=== PATIENT | female | born 2000 | race Caucasian/White ===

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

== ENCOUNTER 2021-02-11 18:40 | Inpatient (IN) | payer MEDICAID, SELFPAY ==
[2021-02-11] VITALS (42 sets, daily range): BP systolic 97–141; BP diastolic 52–84; PULSE 60–86; TEMP 36.1–36.8; O2SAT 93–100; BMI 30.9
[2021-02-11] MEDS: Lactated Ringers 1,000 ML 200 ML IV (18:55)
[2021-02-11] MEDS: Lactated Ringers 500 ML 999 ML IV ×2 (19:00→20:48)
[2021-02-11 19:21] LABS: Absolute Lymphocyte Count 1.61 X10^3/uL (0.83-4.51); Absolute Neutrophil Count 10.5 X10^3/uL (2.0-7.7); Basophil# 0.02 X10^3/uL; Basophil% 0.2 % (0-1); Eosinophil# 0.03 X10^3/uL; Eosinophils% 0.2 % (0-5); Hematocrit 36.8 % (37-47); Hemoglobin 12.4 g/dL (12.0-15.0); Lymphocyte # 1.61 X10^3/ul (0.83-4.51); Lymphocyte % 12.4 % (19-41); Mean Corp Hgb Conc 33.7 g/dL (32-36); Mean Corpuscular Hgb 30.5 pg (27.0-32.0); Mean Corpuscular Volume 90.6 fL (81-99); Mean Platelet Vol. 11.7 fl (6.2-12.0); Monocyte# 0.79 X10^3/uL; Monocyte% 6.1 % (0-10); NRBC Flagged by Analyzer 0 % (0-5); Neutrophil # 10.45 X10^3/uL (2.7-7.7); Neutrophil % 80.7 % (47-70); Platelet Count 176 K/mm3 (150-450); RBC Distribution Width CV 12.5 % (11.6-14.6); RBC Distribution Width SD 41.3 fl (35.1-43.9); Red Blood Count 4.06 M/mm3 (4.2-5.4)
[2021-02-11] MEDS: fentaNYL-bupivacaine (epidural) 100 ML BAG EPIDURAL (20:09)
--- NOTE | 2021-02-11 20:41 | HP.PCM.OB_ITS ---
HPI - General General Date of Admission: 02/11/21 HPI Narrative BEATRIZ STEPHENS, is a 20 F who presents with ctxs. Maternal Data Information Final MERON: 02/21/21 Gestational age: 38&4 PFSH [facility] Medical History (Updated 02/11/21 @ 20:[address] Chuck Hernandes MD) Active labor at term Home Medications famotidine [Pepcid] 20 mg PO BID 02/11/21 [History Last Taken 02/11/21 10:00] prenat.vits,autumn,[id number] [ Vitamin] 1 tab PO DAILY 02/11/21 [History Last Taken 02/11/21 10:00] Allergy/AdvReac Type Severity Reaction Status Date / Time No Known Allergies Allergy Verified 02/11/21 19:16 Social History Smoking Status: Never smoker History Elective abortions Hx Para 0 Spontaneous abortions Hx # Term Pregnancies Ectopic pregnancies Hx # Pregnancies Multiple births # of living children NST FHR Rate Baby A Baseline: 125 Variability:: Moderate Accelerations:: 15 x 15 Decelerations:: Variable Uterine Activity:: Not tracing well Vital Signs Vital Signs Vital Signs: 02/11/21 18:37 02/11/21 19:05 02/11/21 19:06 Temperature 96.9 F L 98.2 F Temperature Source Temporal Pulse Rate 76 68 Blood Pressure 131/84 H BP Systolic 131 BP Diastolic 84 Pulse Ox 100 02/11/21 19:11 02/11/21 19:16 02/11/21 19:22 Temperature Temperature Source Pulse Rate 70 68 71 Blood Pressure BP Systolic BP Diastolic Pulse Ox 100 99 93 02/11/21 19:26 02/11/21 19:54 02/11/21 19:56 Temperature Temperature Source Pulse Rate 72 75 68 Blood Pressure 141/73 H BP Systolic 141 BP Diastolic 73 Pulse Ox 100 98 02/11/21 19:59 02/11/21 20:01 02/11/21 20:04 Temperature Temperature Source Pulse Rate 67 68 77 Blood Pressure 124/74 H BP Systolic 124 BP Diastolic 74 Pulse Ox 99 99 02/11/21 20:08 02/11/21 20:09 02/11/21 20:12 Temperature Temperature Source Pulse Rate 75 72 72 Blood Pressure 134/58 H 117/57 L BP Systolic 134 117 BP Diastolic 58 57 Pulse Ox 99 02/11/21 20:14 02/11/21 20:17 02/11/21 20:19 Temperature Temperature Source Pulse Rate 76 72 83 Blood Pressure 111/53 L BP Systolic 111 BP Diastolic 53 Pulse Ox 99 98 02/11/21 20:22 02/11/21 20:24 02/11/21 20:27 Temperature Temperature Source Pulse Rate 78 77 77 Blood Pressure 110/56 L 112/55 L BP Systolic 110 112 BP Diastolic 56 55 Pulse Ox 97 02/11/21 20:29 02/11/21 20:33 02/11/21 20:37 Temperature Temperature Source Pulse Rate 76 73 82 Blood Pressure 97/53 L 133/66 H BP Systolic 97 133 BP Diastolic 53 66 Pulse Ox 98 Weight Weight: 185 lb 10.067 oz Body Mass Index (BMI) 30.9 Physical Exam Const alert and oriented x3 Resp normal respiratory effort GI soft to palpation and non-tender Inspection: gravid external exam normal Narrative: cvx - 5/C/0 Extremity normal to inspection Labs Labs Labs: Blood Type A POSITIVE Antibody Screen NEGATIVE Hct 36.8 % (37-47) L Hgb 12.4 g/dL (12.0-15.0) See [facility] H&P Assessment & Plan (1) Active labor at term: COMMENT: 38&4 PLAN: Admit to L&D Expectant management Pain - epidural COVID negative EFW - less than 4500g, patient with adequate pelvis GBS positive - pcn per protocol
--- NOTE | 2021-02-11 22:14 | CM.ED ---
FREDDY Note FREDDY and RN ANKUSH Paz responded to ERT for patient. FREDDY and NI LECHUGA met with boyfriend/fob. He reports no issues or needs. SW provided emotional support. SW remains available if needs arise. Plan: Emotional support for FOB/boyfriend Jesenia Haas GILBERTO PRYOR
[2021-02-11] MEDS: Penicillin G 3,000,000 Units 50 ML 100 UNITS IV (23:45)
[2021-02-12] VITALS (28 sets, daily range): BP systolic 115–137; BP diastolic 58–85; PULSE 62–91; RESP 16–18; TEMP 36.4–37.3; O2SAT 96–100
[2021-02-12] MEDS: Lactated Ringers 1,000 ML 200 ML IV (00:57)
[2021-02-12] MEDS: fentaNYL-bupivacaine (epidural) 100 ML BAG EPIDURAL (00:58)
[2021-02-12] MEDS: Penicillin G 3,000,000 Units 50 ML 100 UNITS IV (03:46)
[2021-02-12] MEDS: Oxytocin 30 units/NS 500 ml 30 UNITS/500 ML IV.SOLN 334 UNITS IV (04:56)
--- NOTE | 2021-02-12 05:14 | EX.PCM.OBRPT ---
Maternal Data Information Final MERON: 02/21/21 Gestational age: 38&5 Vaginal Delivery Maternal Presentation Maternal Presentation: Active Labor Operative Information Date of Procedure: 02/12/21 Pre-Operative Diagnosis: Labor Post-Operative Diagnosis: Same Surgery / Procedure Performed: Spontaneous Vaginal Delivery Type of Anesthesia: Epidural Estimated Blood Loss: 250ml Findings Description of Procedure: Patient prepped & draped when C/C/+2. She pushed well to deliver the head. head gently guided to allow delivery of anterior and posterior shoulders. No excess traction placed on head. Body delivered and 3VC clamped & cut in delayed fashion. Placenta delivered with gentle traction and good uterine tone obtained. Presentation: MICHAELA Amniotic Membrane Rupture Type: Spontaneous Amniotic Fluid Description: Lightly stained meconium Placental Delivery Description: Expressed Placenta Disposition: [facility] Specimen(s) Removed: Placenta Cord Vessel Description: 3 Vessels Cord Entanglement: None A Gender: Female ([place]) (1 minute): 8 (5 minute): 9 Delayed Cord Clamping: Yes Post Vaginal Delivery Medications Given After Delivery: IV Pitocin Episiotomy Description: None Laceration: 1st degree (right vaginal - repaired with 3-0 vicryl) Complication Complications: None
--- NOTE | 2021-02-12 05:24 | PCM.NY.DEL ---
Delivery Attendance Service Date: 02/12/21 Physical Exam Apgars/Vital Signs/Weight: Weight: 84.2 kg General Weight: 84.2 kg
--- NOTE | 2021-02-12 07:25 | NURSING ---
report given to Skylar Hawthorne RN who is assuming care of pt at this time
[2021-02-13 04:15] VITALS: BP 120/71; PULSE 65; RESP 18; TEMP 36.2
[2021-02-13 08:30] VITALS: BP 129/73; PULSE 85; RESP 16; TEMP 36.3
--- NOTE | 2021-02-13 08:40 | PCM.PN.OB ---
Subjective Subjective Patient seen at bedside. Ambulating in room with infant. Denies any pain. Voiding without difficulty. with support. Denies any dizziness, headache, CP or SOB. Desires discharge home tomorrow. Objective Data Objective Data Vital Signs: Vital Signs Temp Pulse Resp BP Pulse Ox 97.1 F L 65 18 120/71 98 02/13/21 04:15 02/13/21 04:15 02/13/21 04:15 02/13/21 04:15 02/12/21 17:30 Oxygen Delivery Method Room Air Weight: 185 lb 10.067 oz Body Mass Index (BMI) 30.9 Intake & Output: Intake and Output for Last 24 Hours 02/11/21 02/12/21 02/13/21 23:59 23:59 23:59 Intake Total 1861.67 / 1861.67 1423.33 / 1423.33 Output Total 2100 / 2100 Balance 1861.67 / 1861.67 -676.67 / -676.67 Lab / Micro Data Result Diagrams: 02/11/21 18:55 Micro: Microbiology 02/11/21 19:20 Nasal Secretion SARS-CoV-2 Antigen (Rapid) - Final ROS Eyes Eyes: Denies blurry vision, change in vision or spots in vision ENT HEENT: Denies dizziness or headache(s) Cardiovascular Cardiovascular: Denies abdominal pain, chest pain or dyspnea Respiratory/Chest Respiratory/Chest: Denies cough, dyspnea, shortness of breath at rest or shortness of breath with exertion Gastrointestinal Gastrointestinal: Denies abdominal pain, diarrhea or vomiting Genitourinary Genitourinary: Denies change in urinary stream, difficulty urinating or dysuria Musculoskeletal Musculoskeletal: Reports none Integumentary Integumentary: Denies rash Neurologic Neurologic: Denies dizziness, headache(s), memory loss or weakness Physical Exam Const alert and no apparent distress General Appearance: cooperative and comfortable Exam Limitations: no limitations HEENT normocephalic Eyes General Eye: normal appearance of both eyes Neck full ROM General: normal visual inspection Chest Chest: symmetrical chest wall rise Resp normal respiratory effort and normal air movement Effort and Inspection: symmetric chest movement Auscultation: clear to auscultation bilaterally Cardio regular rate and regular rhythm GI normal to inspection, nondistended, normoactive bowel sounds Back/Spine normal ROM Extremity full ROM and no calf tenderness General Extremity: normal exam except as noted Skin no rashes or lesions noted Neuro CN's II-XII intact bilaterally Psych mental status grossly normal Assessment & Plan (1) (spontaneous vaginal delivery): (2) Laceration, obstetrical, first degree: (3) (): PLAN: PPD 1 Routine care support Anticipate discharge home tomorrow
[2021-02-13 14:00] VITALS: BP 109/66; PULSE 65; RESP 16; TEMP 36.1
[2021-02-13 20:44] VITALS: BP 112/69; PULSE 61; RESP 18; TEMP 36.2
[2021-02-14 02:04] VITALS: BP 98/52; PULSE 53; RESP 18
[2021-02-14 10:00] VITALS: BP 113/67; PULSE 78; RESP 16; TEMP 36.2
--- NOTE | 2021-02-14 12:16 | PCM.PN.OB ---
Subjective Subjective Denies complaints Objective Data Objective Data Vital Signs: Vital Signs Temp Pulse Resp BP Pulse Ox 97.2 F L 78 16 113/67 98 02/14/21 10:00 02/14/21 10:00 02/14/21 10:00 02/14/21 10:00 02/12/21 17:30 Oxygen Delivery Method Room Air Weight: 185 lb 10.067 oz Body Mass Index (BMI) 30.9 Intake & Output: Intake and Output for Last 24 Hours 02/12/21 02/13/21 02/14/21 23:59 23:59 23:59 Intake Total 1423.33 / 1423.33 Output Total 2100 / 2100 Balance -676.67 / -676.67 Lab / Micro Data Result Diagrams: 02/11/21 18:55 Micro: Microbiology 02/11/21 19:20 Nasal Secretion SARS-CoV-2 Antigen (Rapid) - Final Physical Exam Const alert, oriented x3 and no apparent distress HEENT normocephalic GI soft to palpation, non-tender and non-distended GI Narrative: fundus firm, mid & below umbilicus Extremity normal to inspection and no calf tenderness Assessment & Plan (1) (spontaneous vaginal delivery): COMMENT: PPD#2 PLAN: ROutine care D/c to home later today
--- NOTE | 2021-02-14 12:17 | PCM.DC ---
Discharge Instructions Diet Discharge Diet: No restrictions Activity Discharge Activity: May Shower May resume sexual activity in: 6 weeks Weight Bearing Status: Weight bearing as tolerated Dressing / Incision Call your doctor if you observe: Fever of 101 or Higher, Coldness, Increased Pain, Change in Color, Inability to urinate, Inability to have a bowel movement, Using more than 1 pad per hour, Shortness of breath, Dizziness, Fainting spells, Chest pain, Increased palpitations (irregular heartbeat), Calf discomfort and Uncontrolled pain Follow Up Care Please Follow Up With: Chuck Hernandes MD When: Follow up in 2 and 6 weeks for visits. Test Results: Test results from this visit will be discussed in further detail at your follow-up appointment, if applicable. Discharge Plan Admission Admit Date/Time: 02/11/21 18:40 Primary Reason for Your Visit: Vaginal delivery Attending Provider: Chuck Hernandes Primary Care Provider: Care Physician,Kaykay Primary Discharge Orders/Prescriptions Prescriptions: New acetaminophen 500 mg Tablet 1,000 mg PO Q6H PRN PRN (Reason: Pain 1-10 Or Fever) Qty: 0 RF: 0 ibuprofen 600 mg Tablet 600 mg PO Q6H PRN PRN (Reason: Pain Score 1-3) Qty: 0 RF: 0 Continued famotidine [Pepcid] 20 mg Tablet 20 mg PO BID RF: 0 prenat.vits,autumn,tlv-addh-lccgz Tablet 1 tab PO DAILY RF: 0 Referrals / Follow Up: Care Physician,No Primary [Primary Care Provider] - Disposition Disposition (needs filled in before D/C Order can be placed): Home, Self Care
[2021-02-14 14:00] VITALS: BP 107/57; PULSE 78; RESP 16; TEMP 36.2
== END 2021-02-14 19:30 | disposition home or self-care (01) | DRG 560 ==
PROVIDERS: Admitting Provider Obstetrics & Gynecology; Visit Provider Obstetrics & Gynecology
DX: O99.824 Streptococcus B carrier state complicating childbirth (principal); Z37.0 Single live birth; O77.0 Labor and delivery complicated by meconium in amniotic fluid; O70.0 First degree perineal laceration during delivery; Z20.822 Contact with and (suspected) exposure to COVID-19; Z3A.38 38 weeks gestation of pregnancy
CPT/HCPCS: 59025; 59050; 85025; 86850; 86900; 86901; 87426; 99218; J7120; G0378